=== PATIENT | male | born 1955 | race Caucasian/White ===

== ENCOUNTER → 2020-07-17 | Outpatient (CLI) | payer OTHER ==
--- NOTE | 2020-08-23 10:00 | REP ---
C-SPINE SERIES: 8-VIEWS HISTORY: Left-sided neck pain. Hit with a racquet ball five weeks ago. COMPARISON: None. CERVICAL SPINE FINDINGS: Lateral views done in flexion, extension, and neutral position show preserved vertebral body heights and normal alignment. There is some straightening. No subluxation is seen. No instability noted. 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 Mild degenerative disc changes are noted most pronounced at C5-6 and C6-7. Oblique images demonstrate uncovertebral and facet spurring producing foraminal encroachment on the right at C4-5. No traumatic abnormality is seen. IMPRESSION: Degenerative spondylolysis changes as noted above. MTDD
== END ==
LOC: M RAD 08:37
PROVIDERS: ATTEND Surgery
DX: M43.02 Spondylolysis, cervical region (principal)